=== PATIENT | female | born 1940 | race Caucasian/White ===

== ENCOUNTER 2017-08-11 17:01 | Emergency (ER) | payer MEDICARE, BC ==
[~2017-08-11] VITALS: Ht 154.9 cm; Wt 65.0 kg
[2017-08-11 17:03] VITALS: BP 158/70; PULSE 62; RESP 18; TEMP 98.4; O2SAT 99
[2017-08-11] MEDS ORDERED: ACETAMINOPHEN/HYDROcodone 325 MG/5 MG TAB PO ONE (18:00)
--- NOTE | 2017-08-11 18:33 | PD ---
HPI Chief Complaint: Fall Time Seen by Provider: 17:50 Travel History International Travel<30 days: No Contact w/Intl Traveler<30days: No Traveled to known affect area: No History of Present Illness HPI 77-year-old female that presents to the ED for evaluation of fall. Patient had a mechanical fall today about 2 hours ago. Patient takes a also for A. fib and has been having pain in her left knee as well as on her right wrist and forearm. Patient has hematomas to this areas. Per patient she's been able to ambulate but after watching a show for her grandson she developed more pain and she was having difficulty ambulating. She denies taking anything for pain. She has any back pain. No head injury or loss of consciousness. She does have impressive hematomas to the right forearm as well as to the left knee. Denies any numbness, tingling, weakness. No chest pain or shortness of breath. Patient states that she is concerned because she is currently staying at a hotel where he did not have an elevator and she doesn't know how she's got be able to get to her room. She has not only to amoxicillin, codeine, clavulanic acid. Pain per patient is 8/10. PFSH Past Medical History ?: Not Social History Alcohol Use: No Tobacco Use: No Substance Use: No Allergies-Medications (Allergen,Severity, Reaction): Coded Allergies: codeine (Verified Allergy, Severe, 08/11/17) amoxicillin (Unverified Adverse Reaction, Intermediate, Itching, 08/11/17) clavulanic acid (Unverified Adverse Reaction, Intermediate, Itching, ) Reported Meds & Prescriptions Reported Meds & Active Scripts Active Hydrocodone-Acetamin 5-325 mg (Hydrocodone/Acetaminophen) 5 Mg-325 Mg Tablet 1 Tab PO Q6HR PRN Review of Systems Except as stated in HPI: all other systems reviewed are Neg Physical Exam Narrative GENERAL: SKIN: Warm and dry. HEAD: Atraumatic. Normocephalic. EYES: Pupils equal and round. No scleral icterus. No injection or drainage. ENT: No nasal bleeding or discharge. Mucous membranes pink and moist. Tongue is midline. No uvula deviation. NECK: Trachea midline. No JVD. CARDIOVASCULAR: Regular rate and rhythm. No murmurs, S3, S4. RESPIRATORY: No accessory muscle use. Clear to auscultation. Breath sounds equal bilaterally. GASTROINTESTINAL: Abdomen soft, non-tender, nondistended. Hepatic and splenic margins not palpable. MUSCULOSKELETAL: Extremities without clubbing, cyanosis, or edema. No obvious deformities. Full range of motion of the upper and lower extremities bilaterally. 2+ pulses bilaterally. Patient does have pain with flexion of the left knee. She does have a significant hematoma to the left knee. Bruising noted. Patient has a hematoma also noted to the right forearm that is slightly tender to touch but able to move the forearm. Patient also has some bruising on the wrist itself as well. Neurovascularly intact. No lumbar, thoracic, cervical spine tenderness to palpation. NEUROLOGICAL: Awake and alert. No obvious cranial nerve deficits. Motor grossly within normal limits. Five out of 5 muscle strength in the arms and legs. Normal speech. PSYCHIATRIC: Appropriate mood and affect; insight and judgment normal. Data Data Last Documented VS Vital Signs Date Time Temp Pulse Resp B/P (MAP) Pulse Ox O2 Delivery O2 Flow Rate FiO2 08/11/17 19:25 60 18 162/69 (100) 99 Room Air 08/11/17 17:[address] Brain W/O Iv Contrast(Rout) (08/11/17 18:00) Forearm (2vws) (08/11/17 18:00) Knee, Complete (4vws) (08/11/17 18:00) Ice/Cold Pack (08/11/17 18:00) Acetamin-Hydrocod 325-5 Mg ([place] 5-325 (08/11/17 18:00) Splint Or Brace Apply/Monitor (08/11/17 19:14) Ed Discharge Order (08/11/17 19:15) [facility] Medical Decision Making Medical Screen Exam Complete: Yes Emergency Medical Condition: Yes Medical Record Reviewed: Yes Interpretation(s) Last Impressions Radius/Ulna X-Ray 08/11/17 1800 Signed Impressions: Service Date/Time: Friday, August 11, 2017 18:42 - CONCLUSION: Soft tissue swelling without fracture. Pro Brown MD Knee X-Ray 08/11/17 1800 Signed Impressions: Service Date/Time: Friday, August 11, 2017 18:47 - CONCLUSION: Prepatellar soft tissue swelling without fracture. Pro Brown MD CT head negative Differential Diagnosis Fracture versus hematoma versus bruise versus contusion Narrative Course 77-year-old female that presents to the ED for evaluation of fall. Patient was properly examined and was found to have signs and symptoms consistent appears to be fall. Concern for bony injuries. Patient does have significant hematomas. She did not hit her head but she does take Xarelto. They get patient the option to get a CT of the head to rule out any sign of acute head injury secondary to easy bleeding that she's having. She agrees with having this done. X-rays were ordered. Patient was given Lortab for pain. Imaging showed no sign of acute bony injury. Patient was reassured. At this time I recommend brace. Patient was given a short perception for Lortab. Told to apply ice or warm compresses. Tylenol for pain. Close follow-up with PCP. See ED worsening symptoms. Diagnosis Primary Impression: Contusion of knee, left Qualified Codes: S80.02XA - Contusion of left knee, initial encounter Additional Impression: Hematoma Patient Instructions: General Instructions, Narcotic given in the ED Additional Instructions: Take medications as prescribed. Follow-up with PCP. See ED for any worsening symptoms. Do not drink or drive while taking pain medication. Apply ice or heat as needed for pain Please allow patient and family to move to a downstairs room so that she can have mobility. She suffered a bad injury to her knee today 08/11/17 for which it will be difficult for her to walk on the stairs and could potentially cause another injury. Med/Other Pt SpecificInfo: Prescription(s) given Scripts Hydrocodone/Acetaminophen (Hydrocodone-Acetamin 5-325 mg) 5 Mg-325 Mg Tablet 1 TAB PO Q6HR Y for PAIN SCALE 1 TO 10, #12 Prov: Bereket Choi MD 08/11/17 Disposition: 01 DISCHARGE HOME Condition: Stable David Rodriguez Aug 11, 2017 18:33
[2017-08-11] MEDS ORDERED: HYDR-3516 PO (19:04)
--- NOTE | 2017-08-11 19:08 | RADRPT ---
EXAM DATE/TIME: 08/11/2017 18:42 [facility] COMPARISON: No previous studies available for comparison. INDICATIONS : Trauma. Fall. Swelling near elbow. MEDICAL HISTORY : None. SURGICAL HISTORY : None. ENCOUNTER: Initial ACUITY: 1 day PAIN SCORE: 8/10 LOCATION: Right Forearm. FINDINGS: Large area of posterior soft tissue swelling seen of the elbow and proximal forearm. No radiopaque fo reign body. The right radius and ulna are intact. CONCLUSION: Soft tissue swelling without fracture. Pro Brown MD on August 11, 2017 at 19:05 Board Certified Radiologist. This report was verified electronically.
--- NOTE | 2017-08-11 19:09 | RADRPT ---
EXAM DATE/TIME: 08/11/2017 18:47 [facility] COMPARISON: No previous studies available for comparison. INDICATIONS : Trauma. Fall. Swelling of knee. MEDICAL HISTORY : None. SURGICAL HISTORY : None. ENCOUNTER: Initial ACUITY: 1 day PAIN SCORE: 10/10 LOCATION: Left Knee. FINDINGS: There is extensive prepatellar soft tissue swelling. No radiopaque foreign body. I don't see a signif icant joint effusion. No fracture or subluxation demonstrated. Patchy atherosclerotic calcification seen of the popliteal artery. CONCLUSION: Prepatellar soft tissue swelling without fracture. Pro Brown MD on August 11, 2017 at 19:06 Board Certified Radiologist. This report was verified electronically.
--- NOTE | 2017-08-11 19:10 | RADRPT ---
EXAM DATE/TIME: 08/11/2017 18:53 [facility] COMPARISON: No previous studies available for comparison. INDICATIONS : Trauma; fall. RADIATION DOSE: 34.64 CTDIvol (mGy) MEDICAL HISTORY : None SURGICAL HISTORY : None. ENCOUNTER: Initial ACUITY: 1 day PAIN SCALE: 5/10 LOCATION: cranial TECHNIQUE: Multiple contiguous axial images were obtained of the head. Using automated exposure control and adj ustment of the mA and/or kV according to patient size, radiation dose was kept as low as reasonably a chievable to obtain optimal diagnostic quality images. DICOM format image data is available electro nically for review and comparison. FINDINGS: CEREBRUM: The ventricles are normal for age. No evidence of midline shift, mass lesion, hemorrhage or acute in farction. No extra-axial fluid collections are seen. POSTERIOR FOSSA: The cerebellum and brainstem are intact. The 4th ventricle is midline. The cerebellopontine angle i s unremarkable. EXTRACRANIAL: The visualized portion of the orbits is intact. SKULL: The calvaria is intact. No evidence of skull fracture. CONCLUSION: Negative noncontrast head CT. Pro Brown MD on August 11, 2017 at 19:07 Board Certified Radiologist. This report was verified electronically.
[2017-08-11 19:25] VITALS: BP 162/69; PULSE 60; RESP 18; O2SAT 99
== END 2017-08-11 20:10 | disposition home or self-care (01) ==
LOC: NEPE 17:01
DX: S80.02XA Contusion of left knee, initial encounter (principal); S50.11XA Contusion of right forearm, initial encounter; I48.91 Unspecified atrial fibrillation; W19.XXXA Unspecified fall, initial encounter
CPT/HCPCS: 70450; 73090; 73564; 99284; L1830